=== PATIENT | male | born 1965 ===

== ENCOUNTER 2017-11-19 15:55 | Observation (INO) | payer BC ==
[2017-11-19 17:15] LABS: INR 1.1; PROTHROMBIN TIME 11.5 SECONDS (9.7-12.2)
[2017-11-19 17:23] LABS: ALB/GLOB RATIO 1.2 (1.0-2.1); ALBUMIN 3.9 g/dL (3.5-5.0); ALT/SGPT 28 U/L (21-72); AST/SGOT 28 U/L (17-59); BLOOD UREA NITROGEN 14 mg/dL (9-20); CALCIUM 8.9 mg/dl (8.6-10.4); GFR AFRICAN-AMERICAN > 60; GFR NON-AFRICAN AMERICAN > 60
[2017-11-19 17:26] LABS: RBC 4.91 Mil/uL (4.40-5.90); WHITE BLOOD COUNT 5.3 K/uL (4.8-10.8)
[2017-11-19 17:27] LABS: BASO % 0.4 % (0.0-2.0); EOS % 1.7 % (0.0-4.0); HEMOGLOBIN 15.1 g/dL (12.0-18.0); LYMPH % 31.6 % (20.0-40.0); MEAN CELL VOLUME 85.7 fL (80.0-94.0); MEAN CORPUSCULAR HEMOGLOBIN 30.8 pg (27.0-31.0); MEAN CORPUSCULAR HGB CONC 35.9 g/dL (33.0-37.0); MEAN PLATELET VOLUME 10.8 fL (7.2-11.7); MONO % 7.7 % (0.0-10.0); NEUT % 58.6 % (50.0-75.0); NRBC % 0.4 % (0.0-2.0); RED CELL DISTRIBUTION WIDTH 13.8 % (11.5-14.5)
[2017-11-19 17:28] LABS: EOS # 0.1 K/uL (0.0-0.7); LYMPH # 1.7 K/uL (1.0-4.3); MONO # 0.4 K/uL (0.0-0.8); NEUT # 3.1 K/uL (1.8-7.0)
--- NOTE | 2017-11-19 17:33 | C.PDOC ---
History Of Present Illness 52 year old male, PMHx of cardiomyopathy and hypertension, presenting to the emergency department complaining of dizziness that began yesterday. pt reporst "like he is going to pass out". h/o of HOCM, pt states he refuses defibrillator in past. Patient denies syncopal episode, fever, or other medical complaints. Time Seen by Provider: 11/19/17 16:48 Chief Complaint (Nursing): Dizziness/Lightheaded History Per: Patient History/Exam Limitations: no limitations Onset/Duration Of Symptoms: Days Seizure Or Post-ictal Symptoms: None Fall Associated With With Symptoms: No Past Medical History Reviewed: Historical Data, Nursing Documentation, Vital Signs Vital Signs: Last Vital Signs Temp 97.7 F 11/19/17 16:04 Pulse 43 L 11/19/17 19:00 Resp 18 11/19/17 19:00 BP 96/59 L 11/19/17 19:00 Pulse Ox 99 11/19/17 19:57 - Medical History PMH: HTN Other PMH: cardiomyopathy Family History: States: No Known Family Hx - Social History Hx Alcohol Use: No Hx Substance Use: No Review Of Systems Except As Marked, All Systems Reviewed And Found Negative. Constitutional: Negative for: Fever, Chills, Sweats Cardiovascular: Positive for: Light Headedness Gastrointestinal: Negative for: Nausea, Vomiting Neurological: Positive for: Dizziness. Negative for: Other (Syncope ) Physical Exam - Physical Exam Appears: Non-toxic, No Acute Distress Head: Atraumatic, Normacephalic Eye(s): bilateral: Normal Inspection Oral Mucosa: Moist Chest: Symmetrical Cardiovascular: Murmur (Systolic ejection murmur ) Respiratory: Normal Breath Sounds Gastrointestinal/Abdominal: Soft, No Tenderness, No Guarding, No Rebound Extremity: Normal ROM Neurological/Psych: Oriented x3 Gait: Steady ED Course And Treatment - Laboratory Results Result Diagrams: 11/19/17 17:01 11/19/17 17:01 O2 Sat by Pulse Oximetry: 99 (RA) Pulse Ox Interpretation: Normal - Other Rad CXR X-Ray: Read By Radiologist Interpretation: FINDINGS: LUNGS: Clear. PLEURA: No pneumothorax or pleural fluid seen. CARDIOVASCULAR: No radiographic findings to suggest acute or significant cardiovascular disease. OSSEOUS STRUCTURES: No significant abnormalities. VISUALIZED UPPER ABDOMEN: Normal. OTHER FINDINGS: None. IMPRESSION: No active disease. - CT Scan/US CT head w/o contrast Other Rad Studies (CT/US): Read By Radiologist CT/US Interpretation: FINDINGS: Brain and ventricles: Ventricles are normal in size and configuration. There. is no midline shift. There are no intra- axial or extra-axial mass lesions or. areas of hemorrhage. There are no abnormal fluid collections. Fernandez-white. differentiation is maintained. Bones: Cranial vault is intact. Soft tissues: unremarkable. Sinuses: There is no acute sinusitis. Ears and mastoids: Middle ears and mastoids are unremarkable. There is. minimal debris in the left external auditory canal. Orbits: Orbital contents are unremarkable. . IMPRESSION: No acute intracranial abnormality. . Dictated By: Alessandra Trevino MD., MD. Dictated Date/ Time: 11/19/171847. Signed By: Alessandra Trevino MD. Date Signed: 11/19. Transcribed By: [facility]. Transcribe Date/Time: 11/19/171847. MICKY/KAYLEY Medical Decision Making Medical Decision Making: Impression: Lightheadedness /near syncope- h/o of HOCM - ro cardiac, metabolic infectious intracrnail etiology Plan: CT Head W/O contrast EKG Labwork Reevaluation: ekg sinur love 52,. lvh, non specific st twave changes no interval change from previous pt has bedside. pt admitted to dr sloan service for concern of cardiac etiology of near syncope Disposition - Disposition Disposition: HOSPITALIZED Disposition Time: 07:00 Condition: STABLE - Clinical Impression Clinical Impression: Near syncope - Scribe Statement The provider has reviewed the documentation as recorded by the Scribe (Lanette Fuchs) Provider Attestation: All medical record entries made by the Scribe were at my direction and personally dictated by me. I have reviewed the chart and agree that the record accurately reflects my personal performance of the history, physical exam, medical decision making, and the department course for this patient. I have also personally directed, reviewed, and agree with the discharge instructions and disposition. Decision To Admit - Pt Status Changed To: Hospital Disposition Of: Observation - InPatient: Physician Admission Certification: I certify that this patient requires 2 or more midnights of care for the following reason:: needs cardiac montiroing - . Bed Request Type: Telemetry Admitting Physician: Liliane Vance Patient Diagnosis: Near syncope
[2017-11-19 17:35] LABS: B-TYPE NATRIURETIC PEPTIDE 868 pg/mL (0-900)
--- NOTE | 2017-11-19 17:47 | RAD ---
PROCEDURE: CHEST RADIOGRAPH, 1 VIEW HISTORY: chest pain COMPARISON: None available. FINDINGS: LUNGS: Clear. PLEURA: No pneumothorax or pleural fluid seen. CARDIOVASCULAR: No radiographic findings to suggest acute or significant cardiovascular disease. OSSEOUS STRUCTURES: No significant abnormalities. VISUALIZED UPPER ABDOMEN: Normal. OTHER FINDINGS: None. IMPRESSION: No active disease.
[2017-11-19 18:19] LABS: URINE BILIRUBIN NEGATIVE (NEGATIVE); URINE BLOOD NEGATIVE (NEGATIVE); URINE CLARITY Clear (Clear); URINE COLOR Straw (YELLOW); URINE GLUCOSE (UA) NORMAL (Normal); URINE LEUKOCYTE ESTERASE NEG Leu/uL (Negative); URINE PROTEIN NEGATIVE (NEGATIVE); URINE UROBILINOGEN NORMAL mg/dL (0.2-1.0)
--- NOTE | 2017-11-19 18:48 | CT ---
EXAM: CT Head Without Intravenous Contrast EXAM DATE/TIME: 11/19/2017 4:53 PM CLINICAL HISTORY: 52 years old, male; Signs and symptoms; Dizziness TECHNIQUE: Axial computed tomography images of the head/brain without intravenous contrast. All CT scans at this facility use one or more dose reduction techniques, viz.: automated exposure control; ma/kV adjustment per patient size (including targeted exams where dose is matched to indication; i.e. head); or iterative reconstruction technique. COMPARISON: There are no prior studies for comparison. FINDINGS: Brain and ventricles: Ventricles are normal in size and configuration. There is no midline shift. There are no intra-axial or extra-axial mass lesions or areas of hemorrhage. There are no abnormal fluid collections. Fernandez-white differentiation is maintained. Bones: Cranial vault is intact. Soft tissues: unremarkable Sinuses: There is no acute sinusitis. Ears and mastoids: Middle ears and mastoids are unremarkable. There is minimal debris in the left external auditory canal. Orbits: Orbital contents are unremarkable. IMPRESSION: No acute intracranial abnormality
[2017-11-19 22:21] VITALS: BMI 25.1
[2017-11-20 00:58] VITALS: RESP 20
[2017-11-20] MEDS: Metoprolol Succinate 25 mg XL Tab PO SCH ×2 (09:16→17:33)
--- NOTE | 2017-11-20 12:45 | CP.PCM.CON ---
History of Present Illness - History of Present Illness History of Present Illness: Patient with history of HOCM who came with dizziness. Now sitting in bed without any distress. Past Patient History - Past Social History Smoking Status: Never Smoked - CARDIAC Hx Hypertension: Yes - PSYCHIATRIC Hx Substance Use: No - SURGICAL HISTORY Hx Surgeries: No - ANESTHESIA Hx Anesthesia: No Meds Allergies/Adverse Reactions: Allergies Allergy/AdvReac Type Severity Reaction Status Date / Time No Known Allergies Allergy Unverified 11/19/17 16:53 - Medications Medications: Current Medications Acetaminophen (Tylenol 325mg Tab) 650 mg PO Q4H PRN PRN Reason: pain fever Aspirin (Aspirin Chewable) 81 mg PO DAILY [facility] Last Admin: 11/20/17 09:15 Dose: 81 mg Famotidine (Pepcid) 40 mg PO DAILY [facility] Last Admin: 11/20/17 09:15 Dose: 40 mg Metoprolol Succinate (Toprol Xl) 25 mg PO BID [facility] Last Admin: 11/20/17 09:16 Dose: Not Given Pneumococcal Polyvalent Vaccine (Pneumovax 23 Vaccine) 0.5 ml IM .ONCE ONE Stop: 11/21/17 10:01 Physical Exam - Head Exam Head Exam: NORMOCEPHALIC - Neck Exam Neck exam: Positive for: Normal Inspection - Respiratory Exam Respiratory Exam: NORMAL BREATHING PATTERN - Cardiovascular Exam Cardiovascular Exam: REGULAR RHYTHM, Systolic Murmur - Neurological Exam Neurological exam: Oriented x3 Results - Vital Signs Recent Vital Signs: Last Vital Signs Temp 97.8 F 11/20/17 07:20 Pulse 49 L 11/20/17 07:40 Resp 20 11/20/17 07:20 BP 109/65 11/20/17 07:20 Pulse Ox 97 11/20/17 07:20 - Labs Result Diagrams: 11/19/17 17:01 11/19/17 17:01 Labs: Laboratory Results - last 24 hr 11/19/17 11/19/17 11/19/17 17:01 17:01 17:01 WBC 5.3 RBC 4.91 Hgb 15.1 Hct 42.1 MCV 85.7 MCH 30.8 MCHC 35.9 RDW 13.8 Plt Count 141 MPV 10.8 Neut % (Auto) 58.6 Lymph % (Auto) 31.6 [place] % (Auto) 7.7 Eos % (Auto) 1.7 Baso % (Auto) 0.4 Neut # (Auto) 3.1 Lymph # (Auto) 1.7 [place] # (Auto) 0.4 Eos # (Auto) 0.1 Baso # (Auto) 0.0 PT 11.5 INR 1.1 APTT 34 Sodium 143 Potassium 4.3 Chloride 108 H Carbon Dioxide 25 Anion Gap 14 BUN 14 Creatinine 0.7 L Est GFR ( Amer) > 60 Est GFR (Non-Af Amer) > 60 Random Glucose 97 Calcium 8.9 Total Bilirubin 0.8 AST 28 ALT 28 Alkaline Phosphatase 52 Troponin I 0.0270 NT-Pro-B Natriuret Pep 868 Total Protein 7.0 Albumin 3.9 Globulin 3.1 Albumin/Globulin Ratio 1.2 Urine Color Urine Clarity Urine pH Ur Specific [place] Urine Protein Urine Glucose (UA) Urine Ketones Urine Blood Urine Nitrate Urine Bilirubin Urine Urobilinogen Ur Leukocyte Esterase 11/19/17 18:08 WBC RBC Hgb Hct MCV MCH MCHC RDW Plt Count MPV Neut % (Auto) Lymph % (Auto) [place] % (Auto) Eos % (Auto) Baso % (Auto) Neut # (Auto) Lymph # (Auto) [place] # (Auto) Eos # (Auto) Baso # (Auto) PT INR APTT Sodium Potassium Chloride Carbon Dioxide Anion Gap BUN Creatinine Est GFR ( Amer) Est GFR (Non-Af Amer) Random Glucose Calcium Total Bilirubin AST ALT Alkaline Phosphatase Troponin I NT-Pro-B Natriuret Pep Total Protein Albumin Globulin Albumin/Globulin Ratio Urine Color Straw Urine Clarity Clear Urine pH 8.0 Ur Specific [place] 1.011 Urine Protein Negative Urine Glucose (UA) Normal Urine Ketones Negative Urine Blood Negative Urine Nitrate Negative Urine Bilirubin Negative Urine Urobilinogen Normal Ur Leukocyte Esterase Neg - Impressions Impression: Sinus bradycardia with IVCD and misplaced leads. Assessment & Plan (1) Near syncope Assessment and Plan: Patient with history of HOCM. he has/had extensove work-up at [place] and [facility]. Some record reviewed. He needs his beta blockers dose adjusted with EST.This can be done as out patient. Discussed with patient he. Agrees and will follow as out patient. Status: Acute
--- NOTE | 2017-11-20 16:27 | CP.PCM.CON ---
History of Present Illness - History of Present Illness History of Present Illness: Reason for consultation: sleep apnea 52 year old male, PMHx of cardiomyopathy, Obstructive sleep apnea and hypertension, presented to the emergency department complaining of dizziness. pt reporst "like he was going to pass out". h/o of HOCM, pt states he refuses defibrillator in past. Patient denies syncopal episode, fever, or other medical complaints. patient had sleep study done at [facility] in [place] and uses CPAP every night. Review of Systems - Review of Systems All systems: reviewed and no additional remarkable complaints except (chest pain ) Past Patient History - Past Social History Smoking Status: Never Smoked - CARDIAC Hx Hypertension: Yes - PSYCHIATRIC Hx Substance Use: No - SURGICAL HISTORY Hx Surgeries: No - ANESTHESIA Hx Anesthesia: No Meds Allergies/Adverse Reactions: Allergies Allergy/AdvReac Type Severity Reaction Status Date / Time No Known Allergies Allergy Unverified 11/19/17 16:53 - Medications Medications: Current Medications Acetaminophen (Tylenol 325mg Tab) 650 mg PO Q4H PRN PRN Reason: pain fever Aspirin (Aspirin Chewable) 81 mg PO DAILY [facility] Last Admin: 11/20/17 09:15 Dose: 81 mg Famotidine (Pepcid) 40 mg PO DAILY [facility] Last Admin: 11/20/17 09:15 Dose: 40 mg Metoprolol Succinate (Toprol Xl) 25 mg PO BID [facility] Last Admin: 11/20/17 09:16 Dose: Not Given Pneumococcal Polyvalent Vaccine (Pneumovax 23 Vaccine) 0.5 ml IM .ONCE ONE Stop: 11/21/17 10:01 Physical Exam - Head Exam Head Exam: ATRAUMATIC, NORMOCEPHALIC - Eye Exam Eye Exam: Normal appearance - ENT Exam ENT Exam: Mucous Membranes Moist - Neck Exam Neck exam: Positive for: Normal Inspection - Respiratory Exam Respiratory Exam: Clear to Auscultation Bilateral Results - Vital Signs Recent Vital Signs: Last Vital Signs Temp 98.2 F 11/20/17 15:00 Pulse 55 L 11/20/17 15:00 Resp 20 11/20/17 15:00 BP 100/60 11/20/17 15:00 Pulse Ox 98 11/20/17 15:00 - Labs Result Diagrams: 11/19/17 17:01 11/19/17 17:01 Labs: Laboratory Results - last 24 hr 0511/19/17 11/19/17 17:01 17:01 17:01 WBC 5.3 RBC 4.91 Hgb 15.1 Hct 42.1 MCV 85.7 MCH 30.8 MCHC 35.9 RDW 13.8 Plt Count 141 MPV 10.8 Neut % (Auto) 58.6 Lymph % (Auto) 31.6 [place] % (Auto) 7.7 Eos % (Auto) 1.7 Baso % (Auto) 0.4 Neut # (Auto) 3.1 Lymph # (Auto) 1.7 [place] # (Auto) 0.4 Eos # (Auto) 0.1 Baso # (Auto) 0.0 PT 11.5 INR 1.1 APTT 34 Sodium 143 Potassium 4.3 Chloride 108 H Carbon Dioxide 25 Anion Gap 14 BUN 14 Creatinine 0.7 L Est GFR ( Amer) > 60 Est GFR (Non-Af Amer) > 60 Random Glucose 97 Calcium 8.9 Total Bilirubin 0.8 AST 28 ALT 28 Alkaline Phosphatase 52 Troponin I 0.0270 NT-Pro-B Natriuret Pep 868 Total Protein 7.0 Albumin 3.9 Globulin 3.1 Albumin/Globulin Ratio 1.2 Urine Color Urine Clarity Urine pH Ur Specific [place] Urine Protein Urine Glucose (UA) Urine Ketones Urine Blood Urine Nitrate Urine Bilirubin Urine Urobilinogen Ur Leukocyte Esterase 11/19/17 18:08 WBC RBC Hgb Hct MCV MCH MCHC RDW Plt Count MPV Neut % (Auto) Lymph % (Auto) [place] % (Auto) Eos % (Auto) Baso % (Auto) Neut # (Auto) Lymph # (Auto) [place] # (Auto) Eos # (Auto) Baso # (Auto) PT INR APTT Sodium Potassium Chloride Carbon Dioxide Anion Gap BUN Creatinine Est GFR ( Amer) Est GFR (Non-Af Amer) Random Glucose Calcium Total Bilirubin AST ALT Alkaline Phosphatase Troponin I NT-Pro-B Natriuret Pep Total Protein Albumin Globulin Albumin/Globulin Ratio Urine Color Straw Urine Clarity Clear Urine pH 8.0 Ur Specific [place] 1.011 Urine Protein Negative Urine Glucose (UA) Normal Urine Ketones Negative Urine Blood Negative Urine Nitrate Negative Urine Bilirubin Negative Urine Urobilinogen Normal Ur Leukocyte Esterase Neg Assessment & Plan (1) ALEXANDRE (obstructive sleep apnea) Status: Acute Comment: patient advised to use CPAP every night. Will obtain sleep study from [place]. Stable to be discharged from pulmonary and sleep. Follow up in the office (2) Near syncope Status: Acute
[2017-11-21] MEDS: Metoprolol Succinate 25 mg XL Tab PO SCH ×2 (09:45→18:35)
[2017-11-21] MEDS ORDERED: Pneumococcal 23-Valent Vaccine IM ONE (10:00)
[2017-11-21 12:17] LABS: IRON 158 ug/dL (49-181)
[2017-11-21 12:20] LABS: HDL CHOLESTEROL 35 mg/dL (30-70)
[2017-11-21 12:27] LABS: CK-MB 1.71 ng/mL (0.0-3.38)
[2017-11-21 12:29] LABS: % IRON SATURATION 42 (20-55); TOTAL IRON BINDING CAPACITY 378 ug/dL (250-450)
[2017-11-21 12:30] LABS: LDL CHOLESTEROL 173 mg/dL (0-129)
[2017-11-21 13:20] LABS: FOLATE 9.7 ng/mL
--- NOTE | 2017-11-21 14:10 | HP ---
The patient was seen and examined at the bedside on 11/20/2017. CHIEF COMPLAINT: Near-syncope, dizziness. HISTORY OF PRESENT ILLNESS: Mr. Duy Boothe is a 53-year-old male with past medical history of cardiomyopathy, hypertension, who came to the emergency department complaining of dizziness that began yesterday. The patient reports like he is going to pass out, history of HOCM. The patient states he refused his defibrillator in the past. The patient denies syncopal episode, but has a feeling of syncope. No fever or chills. No nausea, vomiting, or diarrhea. No hematuria or hematochezia. According to the patient, he used to have history of similar attacks two years ago and was feeling dizziness and lightheadedness, even when he is walking a few steps. PAST MEDICAL HISTORY: Hypertension, cardiomyopathy. FAMILY HISTORY: Father and mother, noncontributory. HABITS: Never smoked. No drugs. No ethanol. ALLERGIES: THE PATIENT IS NOT ALLERGIC WITH ANY MEDICATION. HOME MEDICATIONS: Reviewed by me. REVIEW OF SYSTEMS: The patient was seen and examined at the bedside, at that moment looking comfortable. No nausea, vomiting, or diarrhea. No hematuria or hematochezia. No swelling of the legs. No chest pain. No palpitation. Mild headache, lightheaded, and dizziness. PHYSICAL EXAMINATION: VITAL SIGNS: Respiratory rate 20, blood pressure 100/60, pulse oximetry 98, temperature 98.2. HEENT: Head, normocephalic, atraumatic. Eyes: PERRLA. Extraocular movements intact. Conjunctivae clear. Nose: Patent. Mucous membranes are moist. NECK: Supple. No carotid bruits. No JVD. No thyromegaly. CHEST: Bilaterally symmetrical. HEART: S1, S2 positive. LUNGS: Clear to auscultation. ABDOMEN: Soft. Bowel sounds present. No organomegaly. EXTREMITIES: No edema. No cyanosis. NEUROLOGIC: The patient is awake, alert. Moving all four extremities. No focal deficits. LABORATORY DATA: White blood cells 5.3, hemoglobin 15.1, hematocrit 42.1, platelets 141. Sodium 143, potassium 4.3, BUN 14, creatinine 0.7, glucose 97. ASSESSMENT AND PLAN: Mr. Duy Boothe is a 52-year-old male with hyperchloremia, history of obstructive sleep apnea syndrome. The patient advised to use continuous positive airway pressure every night. We will get sleep study from [place]. Near syncope, history of hypertension, cardiomyopathy, came with dizziness and lightheadedness. The patient was offered defibrillator. He refused that. The patient's sleep study was done in [facility] in [place] and he used to use continuous positive airway pressure every night. Discussion done with Dr. Masoud Ta, lance crewmember,, on the bedside. Discussion done with Dr. Marquez, cold roller. According to Dr. Marquez, the patient had extensive workup at [facility]. Some records reviewed by Dr. Marquez and by me also. Need beta-leah adjustment with paroxysmal supraventricular tachycardia. Waiting for the neurologist. CAT scan of the head, electrocardiography, chest x-rays done. Neurologist, Dr. Chevy Goldstein is on the case. He will continue aspirin, Pepcid, metoprolol, and acetaminophen. Blood pressure is up and down, heart rate is sometimes in the 50s, but right now is 99. Gastrointestinal and deep venous thrombosis prophylaxis. Repeat labs. We will follow up. Liliane Vance MD
--- NOTE | 2017-11-21 16:18 | CP.PCM.PN ---
Subjective - Date & Time of Evaluation Date of Evaluation: 11/21/17 Time of Evaluation: 16:17 Objective - Vital Signs/Intake and Output Vital Signs (last 24 hours): Temp Pulse Resp BP Pulse Ox 97.2 F L 54 L 20 130/75 98 11/21/17 07:54 11/21/17 16:07 11/21/17 07:54 11/21/17 07:54 11/21/17 07:54 - Medications Medications: Current Medications Acetaminophen (Tylenol 325mg Tab) 650 mg PO Q4H PRN PRN Reason: pain fever Aspirin (Aspirin Chewable) 81 mg PO DAILY [facility] Last Admin: 11/21/17 09:45 Dose: 81 mg Famotidine (Pepcid) 40 mg PO DAILY [facility] Last Admin: 11/21/17 09:44 Dose: 40 mg Metoprolol Succinate (Toprol Xl) 25 mg PO BID [facility] Last Admin: 11/21/17 09:45 Dose: 25 mg - Labs Labs: 11/19/17 17:01 11/19/17 17:01 PT 11.5 SECONDS (9.7-12.2) 11/19/17 17:01 INR 1.1 11/19/17 17:01 APTT 34 SECONDS (21-34) 11/19/17 17:01 Assessment and Plan - Assessment and Plan (Free Text) Assessment: FOLLOW UP WITH DR ZAPATA IN 1 -2 WEEK AT HER OFFICE ---CALL FOR APPOINTMENT FOLLOW UP WITH DR ARCINIEGA AT HIS OFFICE----- CALL FOR APPOINTMENT CONTINUE ALL YOUR HOME MEDICATION NEW PRESCRIPTION GIVEN ASPIRIN 81 MG PO DAILY ONE TAB ACTIVITY TOLERATED CALL DR ZAPATA OR GO TO THE EMERGENCY ROOM IF SYMPTOMS RETURN OR WORSENING
[2017-11-21 16:44] VITALS: BP 104/65; PULSE 60; TEMP 97.6; O2SAT 95
--- NOTE | 2017-11-22 03:48 | CON ---
DATE: HISTORY OF PRESENT ILLNESS: This is a 52-year-old [place]i male with past medical history of cardiomyopathy, obstructive sleep apnea, hypertension who came to the emergency room complaining of dizziness. He felt like he is going to pass out, and the patient denies any other complaints. He said he took fruit for the breakfast and was walking to the office, and he felt very dizzy. Did not pass out. PAST MEDICAL HISTORY: Cardiomyopathy, obstructive sleep apnea, hypertension. ALLERGIES: NO KNOWN DRUG ALLERGIES. MEDICATIONS: Tylenol, Pepcid, Toprol. REVIEW OF SYSTEMS: Ten-point review of system was negative. PHYSICAL EXAMINATION: HEENT: Normocephalic and atraumatic. NECK: Supple. NEUROLOGIC: Alert, awake, and oriented x3. Cranial nerve II through XII tested. Pupils reactive. EOMs intact. No facial asymmetry. Motor examination: Moves all extremities equally. Deep tendon reflexes 1+. Power 5/5. Tone is normal. Plantars downgoing. Sensory appears intact. Cerebellar gait. IMPRESSION: Syncope versus dizziness. PLAN: CAT scan of the head was done which was reported negative, and the patient is feeling much better, eating and sitting comfortably. Continue present management. He will follow up as outpatient. Ric Goldstein MD
--- NOTE | 2017-11-22 08:41 | CON ---
DATE: 11/21/2017 HISTORY OF PRESENT ILLNESS: This is a 52-year-old male with a past medical history of hypertension and cardiomyopathy, who came to the hospital emergency room with dizziness, which began yesterday and felt like going to pass out. He had some fruits in the morning and was walking to the office, towards the [place] where he felt very dizzy. The patient had this kind of feeling an year ago before, then after that things went okay. He has been seen for cardiomyopathy in, I think, [place]. PAST MEDICAL HISTORY: Hypertension and cardiomyopathy. HABITS: Never smoked. Does not drink. ALLERGIES: NOT ALLERGIC TO ANY MEDICATION. REVIEW OF SYSTEMS: Ten-point review of systems was negative. PHYSICAL EXAMINATION: HEENT: Normocephalic, atraumatic. NECK: Supple. NEUROLOGIC: Alert, awake, oriented x3. No aphasia. Cranial nerves II through XII were tested. Pupils reactive. EOM intact. Visual field full. No facial asymmetry. Tongue is midline. Motor: Moves all the extremities equally. Tone normal. Deep tendon reflexes are normal. Both plantars are downgoing. Sensory: Appears intact. Cerebellar: Gait deferred. IMPRESSION AND PLAN: Syncope, less likely seizure. The patient was seen by Cardiology, Dr. Marquez. CAT scan of the head was done which was negative. The patient at the moment doing better. Continue present management. We will follow up as an outpatient. Ric Goldstein MD
== END 2017-11-21 18:46 | disposition home or self-care (01) ==
LOC: C.ER 15:55 → C.9E 18:51 → C.5S 19:16
PROVIDERS: ADMIT Internal Medicine; ATTEND Internal Medicine
DX: R55 Syncope and collapse (principal); I42.1 Obstructive hypertrophic cardiomyopathy; R00.1 Bradycardia, unspecified; G47.33 Obstructive sleep apnea (adult) (pediatric); I47.1 Supraventricular tachycardia; R42 Dizziness and giddiness; I10 Essential (primary) hypertension; E87.8 Other disorders of electrolyte and fluid balance, not elsewhere classified; Z23 Encounter for immunization
CPT/HCPCS: 36415; 70450; 71045; 80053; 80061; 81001; 82607; 82746; 83036; 83540; 83550; 83880; 84484; 85025; 85610; 85730; 90732; 99285; G0009; G0378